=== PATIENT | male | born 1990 | race African-American/Black ===

== ENCOUNTER 2018-03-29 21:50 | Emergency (ER) | payer OTHER ==
[2018-03-29 22:25] VITALS: BP 147/78
--- NOTE | 2018-03-29 22:50 | ER Document Report ---
ED General - General Chief Complaint: Neck Pain < 24hrs old Stated Complaint: NECK PAIN Time Seen by Provider: 03/29/18 22:33 Notes: Patient is a 27-year-old male who presents with complaint of pain in his neck. He said he first noticed it 5 days ago when he was working out and doing what sounds to be lap pull downs. They felt a sharp pain into his anterior neck and it now hurts whenever he turns his head side to side. Says the pain is only one spot and nowhere else. No difficulty breathing or swallowing. No fevers. No focal weakness or numbness into the extremities. Patient also mentioned at the end of his interview that he wants to know if I would look at his nose because he has chronic nasal congestion. He says that time had a nosebleed and he did cauterization of the area where his bleeding from. He says that every now and then he will blow his nose and will have some blood that comes out. He says at night when he sleeps he wakes up because of the congestion in his nose. He does have a history of lymph node removal from underneath the right mandible. He said the removed lymph nodes are enlarged. The pathology did not show any forms of cancer. TRAVEL OUTSIDE OF THE [place] IN LAST 30 DAYS: No - Related Data Allergies/Adverse Reactions: No Known Allergies Allergy (Verified 03/29/18 23:15) Past Medical History - Social History Smoking Status: Never Smoker Frequency of alcohol use: None Drug Abuse: None Family History: Reviewed & Not Pertinent Review of Systems - Review of Systems Notes: My Normal Review Basic REVIEW OF SYSTEMS: CONSTITUTIONAL : Denies fever, chills, or sweats. Denies recent illness. EENT: Complains of chronic nasal congestion. RESPIRATORY: Denies cough, cold, or chest congestion. Denies shortness of breath, difficulty breathing, or wheezing. MUSCULOSKELETAL: Neck pain. SKIN: Denies rash or skin lesions. NEUROLOGICAL: Denies altered mental status or loss of consciousness. Denies headache. Denies weakness or paralysis or loss of use of either side. Denies problems with gait or speech. Denies sensory or motor loss. ALL OTHER SYSTEMS REVIEWED AND NEGATIVE. Physical Exam - Vital signs Vitals: Temp Pulse BP Pulse Ox 98.9 F 55 L 147/78 H 100 03/29/18 22:12 03/29/18 22:12 03/29/18 22:12 03/29/18 22:12 - Notes Notes: General Appearance: Well nourished, alert, cooperative, no acute distress, no obvious discomfort. Well-appearing. Vitals: reviewed, See vital signs table. Head: no swelling or tenderness to the head Eyes: PERRL, EOMI, Conjuctiva clear Mouth: No decreasd moisture Throat: No tonsillar inflammation, No airway obstruction, No lymphadenopathy Nose: Patient has bilateral nasal polyps. no active bleeding. Neck: Mild pinpoint tenderness over left anterior scalene. No pain over the carotid itself. There is no carotid bruit on auscultation. Skin: warm, dry, appropriate color, no rash Neuro: speech clear, oriented x 3, normal affect, responds appropriately to questions. Course - Re-evaluation Re-evalutation: 03/30/18 05:07 On exam patient does have some pinpoint tenderness over the anterior scalene the left side. He has pain is reproducible with range of motion of his neck. Suspect that this is purely muscular skeletal. He has no carotid bruits and he does not have pain over the carotid artery itself. Informed her that he must return to ER immediately if he has increasing pain, dizziness, lightheadedness, difficulty breathing or swallowing, or if he feels there is worsening in any way. I informed him to avoid heavy lifting or working out for at least 2 weeks and to follow-up with his primary care doctor for close reevaluation patient's nasal exam does show that he has large nasal polyps. I informed him that he needs to see ENT to talk about having these either biopsy or possibly removed. This most likely will help him with his symptoms especially his sleeping at night. Patient agrees with plan will be discharged home. Dictation of this chart was performed using voice recognition software; therefore, there may be some unintended grammatical errors. - Vital Signs Vital signs: Temp Pulse Resp BP Pulse Ox 98.9 F 55 L 147/78 H 100 03/29/18 22:12 03/29/18 22:12 03/29/18 22:12 03/29/18 22:12 Discharge - Discharge Clinical Impression: Neck pain, Nasal polyp Condition: Good Disposition: HOME, SELF-CARE Additional Instructions: Please follow up with your primary care doctor in 1 week for recheck of your neck. please take Tylenol and ibuprofen for pain. Avoid weight lifting for at least 2 weeks. Please return to the ER immediately if you have worsening pain, weakness or numbness into your arm, fevers, difficulty breathing, or difficulty swallowing. You have what appear to be nasal polyps. These need to be evaluated y an ENT physician and discuss possible removal of them to help with your sleep. Referrals: [facility], [ASSOCIATE] - Follow up in 3-5 days
== END 2018-03-29 22:51 | disposition home or self-care (01) ==
LOC: ER 21:50
DX: M54.2 Cervicalgia (principal); J33.9 Nasal polyp, unspecified; R09.81 Nasal congestion; Z98.890 Other specified postprocedural states
CPT/HCPCS: 99283